=== PATIENT | male | born 1965 | race Two or more races ===

== ENCOUNTER 2024-11-16 06:56 | Inpatient (IN) | payer SELFPAY ==
[~2024-11-16] VITALS: Ht 165.1 cm; Wt 82.0 kg
[2024-11-16] VITALS (15 sets, daily range): BP systolic 89–138; BP diastolic 48–101; PULSE 48–60; RESP 20–23; TEMP 97.6–97.7; O2SAT 95–96
[2024-11-16] MEDS: ASPIRIN 325 MG TABLET PO ONE (07:14)
[2024-11-16] MEDS: ATORVASTATIN CALCIUM 40 MG TABLET PO ONE (07:14)
[2024-11-16] MEDS: TICAGRELOR 90 MG TABLET PO ONE (07:15)
[2024-11-16] MEDS: HEPARIN SODIUM,PORCINE 5,000 UNITS/ML VIAL IVP ONE (07:15)
[2024-11-16 07:18] LABS: BASOPHILS % (AUTO) 0.7 % (0.0-2.0); EOSINOPHILS % (AUTO) 3.2 % (1.0-6.0); HEMATOCRIT 48.2 % (41-53); HEMOGLOBIN 16.3 g/dL (13.5-17.5); LYMPHOCYTES % (AUTO) 41.9 % (22.0-44.0); MEAN CORPUSCULAR HEMOGLOBIN 30.8 pg (26.0-34.0); MEAN CORPUSCULAR HGB CONC 33.8 G/dL (31.0-37.0); MEAN CORPUSCULAR VOLUME 91 fL (80-100); MONOCYTES % (AUTO) 8.1 % (2.0-9.0); NEUTROPHILS # (AUTO) 5.5 K/uL (1.8-7.7); NEUTROPHILS % (AUTO) 46.1 % (40.0-70.0); PLATELET COUNT (AUTO) 219 K/uL (150-450); RED BLOOD CELL COUNT(AUTO) 5.29 MIL/uL (4.50-5.90); RED CELL DISTRIBUTION WIDTH 12.9 % (11.5-14.5); WHITE BLOOD COUNT (AUTO) 11.9 K/uL (4.5-11.0)
[2024-11-16] MEDS ORDERED: NITROGLYCERIN 2% (1 GM=INCH) OINTMENT PACKET TP ONE (07:19)
[2024-11-16] MEDS ORDERED: NITROGLYCERIN 0.4 MG SUBLINGUAL TABLET #25 SL ONE (07:19)
[2024-11-16] MEDS ORDERED: ONDANSETRON HCL 4 MG/2 ML VIAL ONE (07:23)
[2024-11-16] MEDS: ONDANSETRON HCL 4 MG/2 ML VIAL IVP ONE (07:24)
[2024-11-16 07:28] LABS: ANION GAP 15 mmol/L (8-16); CALCIUM, TOTAL 8.4 mg/dL (8.8-10.5); CARBON DIOXIDE 19 mmol/L (22-29); CHLORIDE 105 mmol/L (98-107); CREATININE 1.19 mg/dL (0.60-1.30); GLOMERULAR FILTR. RATE CALC > 60 mL/min (>60); GLUCOSE,RANDOM 156 mg/dL (70-110); POTASSIUM 3.3 mmol/L (3.5-5.1); SODIUM SERUM 139 mmol/L (136-145); UREA NITROGEN, BLOOD 18 mg/dL (7-18)
[2024-11-16] MEDS: NITROGLYCERIN 2% (1 GM=INCH) OINTMENT PACKET TP ONE (07:29)
[2024-11-16] MEDS ORDERED: NITROGLYCERIN 400 MCG/SUBLINGUAL SPRAY 4.9 GM BOTTLE SL ONE ×2 (07:30→08:13)
[2024-11-16] MEDS: NITROGLYCERIN 0.4 MG SUBLINGUAL TABLET #25 SL ONE (07:32)
[2024-11-16 07:35] LABS: B-TYPE NATRIURETIC PEPTIDE 32 pg/mL (0-100)
[2024-11-16 07:36] LABS: TROPONIN I-HIGH SENSITIVITY 13 ng/L (<76)
[2024-11-16 07:38] LABS: PROTHROMBIN TIME 10.4 SEC (9.4-11.6)
[2024-11-16] MEDS ORDERED: MIDAZOLAM HCL 2 MG/2 ML VIAL ONE (07:39)
[2024-11-16] MEDS ORDERED: FentaNYL CITRATE PF 100 MCG/2 ML VIAL ONE (07:39)
[2024-11-16 07:53] LABS: CREATINE KINASE, TOTAL ONLY 108 U/L (39-308)
[2024-11-16] MEDS ORDERED: POTASSIUM CHL 10 MEQ/WATER 50 ML IV PRN ×2 (08:00→08:30)
[2024-11-16] MEDS ORDERED: ONDANSETRON HCL 4 MG/2 ML VIAL IVP PRN (08:00)
[2024-11-16] MEDS ORDERED: ACETAMINOPHEN 325 MG TABLET PO PRN (08:00)
[2024-11-16] MEDS ORDERED: ATROPINE SULFATE 0.1 MG/ML 10 ML SYRINGE IVP ONE (08:01)
[2024-11-16] MEDS ORDERED: MORPHINE SULFATE 2 MG/ML SYRINGE ONE ×2 (08:10→08:30)
[2024-11-16] MEDS ORDERED: MAGNESIUM OXIDE 400 MG TABLET PO PRN (08:30)
[2024-11-16] MEDS ORDERED: MAGNESIUM SULFATE 4 GM/WATER 100 ML IV PRN (08:30)
[2024-11-16] MEDS ORDERED: MAGNESIUM SULFATE 2 GM/WATER 50 ML IV PRN (08:30)
[2024-11-16] MEDS ORDERED: POTASSIUM CHLORIDE 20 MEQ ER TABLET PO PRN (08:30)
[2024-11-16] MEDS: MORPHINE SULFATE 2 MG/ML SYRINGE IVP ONE ×3 (08:44→08:51)
[2024-11-16] MEDS: HEPARIN SODIUM,PORCINE 1,000 UNITS/ML 10 ML VIAL IARTER ONE (08:44)
[2024-11-16] MEDS ORDERED: NITROGLYCERIN 0.4 MG SUBLINGUAL TABLET #25 SL PRN (08:45)
[2024-11-16] MEDS: HEPARIN SODIUM 1000 UNITS/NS 1,000 ML IARTER ONE (08:45)
[2024-11-16] MEDS: LIDOCAINE 1% 30 ML/SOD BICARB 8.4% 4 ML SQ ONE (08:45)
[2024-11-16] MEDS: IOHEXOL 300 MG/ML 100 ML VIAL IARTER ONE (08:45)
[2024-11-16] MEDS: MIDAZOLAM HCL 2 MG/2 ML VIAL IVP ONE ×2 (08:47→08:49)
[2024-11-16] MEDS: FentaNYL CITRATE PF 100 MCG/2 ML VIAL IVP ONE ×2 (08:47→08:48)
[2024-11-16] MEDS: HEPARIN SODIUM,PORCINE 1,000 UNITS/ML 10 ML VIAL IVP ONE (08:50)
[2024-11-16] MEDS: NITROGLYCERIN/D5W 50 MG/250 ML IV BOTTLE IARTER ONE (08:50)
[2024-11-16] MEDS: VERAPAMIL HCL 2.5 MG/ML 2 ML VIAL IARTER ONE (08:50)
[2024-11-16] MEDS: IOHEXOL 300 MG/ML 100 ML VIAL ICOR ONE (08:50)
[2024-11-16] MEDS ORDERED: ATORVASTATIN CALCIUM 40 MG TABLET PO SCH (09:00)
[2024-11-16] MEDS: DOCUSATE SODIUM 100 MG CAPSULE PO SCH (09:00)
[2024-11-16] MEDS: METOPROLOL TARTRATE 25 MG TABLET PO SCH (09:58)
[2024-11-16] MEDS: FAMOTIDINE 20 MG TABLET PO SCH (09:58)
[2024-11-16 10:31] LABS: ALBUMIN 3.7 g/dL (3.4-5.0)
[2024-11-16] MEDS: POTASSIUM CHLORIDE 20 MEQ ER TABLET PO PRN (11:19)
[2024-11-16] MEDS: MORPHINE SULFATE 2 MG/ML SYRINGE IVP PRN (11:21)
[2024-11-16] MEDS: TICAGRELOR 90 MG TABLET PO SCH (20:38)
[2024-11-17] VITALS (11 sets, daily range): BP systolic 101–123; BP diastolic 59–87; PULSE 50–61; RESP 16–25; TEMP 97.9–99.1; O2SAT 93–96
[2024-11-17 06:30] LABS: BASOPHILS % (AUTO) 0.2 % (0.0-2.0); EOSINOPHILS % (AUTO) 0.5 % (1.0-6.0); HEMATOCRIT 46.2 % (41-53); HEMOGLOBIN 15.2 g/dL (13.5-17.5); LYMPHOCYTES # (AUTO) 1.7 K/uL (1.0-4.8); LYMPHOCYTES % (AUTO) 12.3 % (22.0-44.0); MEAN CORPUSCULAR HEMOGLOBIN 30.2 pg (26.0-34.0); MEAN CORPUSCULAR VOLUME 92 fL (80-100); MONOCYTES # (AUTO) 0.9 K/uL (0.1-1.0); MONOCYTES % (AUTO) 6.6 % (2.0-9.0); NEUTROPHILS # (AUTO) 10.9 K/uL (1.8-7.7); NEUTROPHILS % (AUTO) 80.4 % (40.0-70.0); PLATELET COUNT (AUTO) 167 K/uL (150-450); RED BLOOD CELL COUNT(AUTO) 5.05 MIL/uL (4.50-5.90); RED CELL DISTRIBUTION WIDTH 13.5 % (11.5-14.5); WHITE BLOOD COUNT (AUTO) 13.5 K/uL (4.5-11.0)
[2024-11-17 06:39] LABS: ANION GAP 6 mmol/L (8-16); CALCIUM, TOTAL 8.3 mg/dL (8.8-10.5); CARBON DIOXIDE 28 mmol/L (22-29); CHLORIDE 103 mmol/L (98-107); CHOL/HDL RATIO 3.7 (4.2-7.3); CHOLESTEROL 178 mg/dL (131-200); CREATININE 0.91 mg/dL (0.60-1.30); GLOMERULAR FILTR. RATE CALC > 60 mL/min (>60); GLUCOSE,RANDOM 113 mg/dL (70-110); HDL CHOLESTEROL 48 mg/dL (40-60); LDL CHOL (CALC.) 111 mg/dL (0-130); SODIUM SERUM 137 mmol/L (136-145); TRIGLYCERIDES 94 mg/dL (15-150); UREA NITROGEN, BLOOD 18 mg/dL (7-18)
[2024-11-17] MEDS: METOPROLOL SUCCINATE 25 MG ER TABLET PO SCH (08:46)
[2024-11-17 08:50] LABS: TROPONIN I-HIGH SENSITIVITY > 25000 ng/L (<76)
[2024-11-17] MEDS: ASPIRIN 81 MG DR TABLET PO SCH (09:24)
[2024-11-17] MEDS: ATORVASTATIN CALCIUM 40 MG TABLET PO SCH (09:24)
[2024-11-17] MEDS: LISINOPRIL 5 MG TABLET PO SCH (09:25)
[2024-11-17 14:33] LABS: HEMOGLOBIN A1C 5.9 % (3.8-5.6)
[2024-11-18] VITALS (8 sets, daily range): BP systolic 93–110; BP diastolic 54–70; PULSE 51–64; RESP 18–20; TEMP 98–99.5; O2SAT 95–99
[2024-11-18] MEDS ORDERED: SODIUM CHLORIDE 0.9% 500 ML IV ONE (00:01)
[2024-11-18] MEDS: CefTRIAXone 1 GM/DEXTROSE 50 ML IV SCH (00:13)
[2024-11-18 08:23] LABS: BASOPHILS % (AUTO) 0.4 % (0.0-2.0); EOSINOPHILS % (AUTO) 0.5 % (1.0-6.0); HEMATOCRIT 45.2 % (41-53); HEMOGLOBIN 15.1 g/dL (13.5-17.5); LYMPHOCYTES # (AUTO) 1.7 K/uL (1.0-4.8); LYMPHOCYTES % (AUTO) 15.2 % (22.0-44.0); MEAN CORPUSCULAR HEMOGLOBIN 30.6 pg (26.0-34.0); MEAN CORPUSCULAR HGB CONC 33.4 G/dL (31.0-37.0); MEAN CORPUSCULAR VOLUME 92 fL (80-100); MONOCYTES # (AUTO) 1.1 K/uL (0.1-1.0); MONOCYTES % (AUTO) 9.8 % (2.0-9.0); NEUTROPHILS # (AUTO) 8.4 K/uL (1.8-7.7); NEUTROPHILS % (AUTO) 74.1 % (40.0-70.0); PLATELET COUNT (AUTO) 153 K/uL (150-450); RED BLOOD CELL COUNT(AUTO) 4.94 MIL/uL (4.50-5.90); WHITE BLOOD COUNT (AUTO) 11.4 K/uL (4.5-11.0)
[2024-11-18] MEDS: SPIRONOLACTONE 25 MG TABLET PO SCH (08:32)
[2024-11-18 08:37] LABS: ANION GAP 9 mmol/L (8-16); CALCIUM, TOTAL 8.2 mg/dL (8.8-10.5); CARBON DIOXIDE 25 mmol/L (22-29); CHLORIDE 101 mmol/L (98-107); CREATININE 0.94 mg/dL (0.60-1.30); GLOMERULAR FILTR. RATE CALC > 60 mL/min (>60); GLUCOSE,RANDOM 83 mg/dL (70-110); POTASSIUM 3.9 mmol/L (3.5-5.1); SODIUM SERUM 135 mmol/L (136-145); UREA NITROGEN, BLOOD 20 mg/dL (7-18)
[2024-11-18 13:21] LABS: APPEARANCE,URINE CLEAR (CLEAR); BILIRUBIN,URINE NEGATIVE (NEGATIVE); COLOR,URINE LIGHT YELLOW (YELLOW); GLUCOSE, URINE (UA) NEGATIVE (NEGATIVE); KETONES,URINE NEGATIVE (NEGATIVE); LEUKOCYTE ESTERASE ,URINE NEGATIVE (NEGATIVE); NITRATE,URINE NEGATIVE (NEGATIVE); OCCULT BLOOD,URINE NEGATIVE (NEGATIVE); PH,URINE 5.5 (5.0-8.0); PROTEIN,URINE NEGATIVE (NEGATIVE); SPECIFIC GRAVITIY, URINE 1.013 (1.003-1.030); UROBILINOGEN,URINE <=1.0 mg/dL (<=1.0)
[2024-11-18] MEDS ORDERED: ATOR40TA71 PO (16:52)
[2024-11-18] MEDS ORDERED: LISI-892 PO (16:52)
[2024-11-18] MEDS ORDERED: SPIR-37 PO (16:52)
[2024-11-18] MEDS ORDERED: PRAS10TA6 PO (16:52)
[2024-11-18] MEDS ORDERED: METO25XL PO (16:52)
[2024-11-18] MEDS ORDERED: ASPI-1444 PO (16:52)
[2024-11-18] MEDS ORDERED: LEVO750T68 PO (16:52)
[2024-11-18] MEDS: PRASUGREL HCL 10 MG TABLET PO ONE (17:08)
[2024-11-19] MEDS ORDERED: LEVOFLOXACIN 750 MG TABLET PO SCH (09:00)
[2024-11-19] MEDS ORDERED: PRASUGREL HCL 10 MG TABLET PO SCH (09:00)
[2024-11-19 16:58] LABS: TROPONIN I-HIGH SENSITIVITY > 25000 ng/L (<76)
== END 2024-11-18 18:10 | disposition home or self-care (01) | DRG 322 ==
LOC: EMS 06:57 → EDH 07:51 → ICU 09:15 → 5N 11-17 21:35
PROVIDERS: ADMIT Internal Medicine; ATTEND Internal Medicine
PROC: 027036Z Dilation of Coronary Artery, One Artery with Three Drug-eluting Intraluminal Devices, Percutaneous Approach (ICD-10-PCS; principal; 2024-11-16)
PROC: B2111ZZ Fluoroscopy of Multiple Coronary Arteries using Low Osmolar Contrast (ICD-10-PCS; 2024-11-16)
PROC: 4A023N7 Measurement of Cardiac Sampling and Pressure, Left Heart, Percutaneous Approach (ICD-10-PCS; 2024-11-16)
DX: I21.3 ST elevation (STEMI) myocardial infarction of unspecified site (principal); E11.9 Type 2 diabetes mellitus without complications; E78.5 Hyperlipidemia, unspecified; D72.829 Elevated white blood cell count, unspecified; E78.00 Pure hypercholesterolemia, unspecified; Z83.3 Family history of diabetes mellitus; Z79.02 Long term (current) use of antithrombotics/antiplatelets; Z98.61 Coronary angioplasty status
CPT/HCPCS: 71045; 80048; 80061; 81003; 82040; 82550; 83036; 83605; 83735; 83880; 84132; 84484; 85025; 85610; 85730; 87040; 87081; 92920; 92928; 93005; 93306; 99285; J0461; J0696; J1644; J2250; J2270; J2405; J3010; J7040; 36415-L1; 36415-TC